=== PATIENT | male | born 1970 | race Caucasian/White ===

== ENCOUNTER → 2018-04-02 14:16 | Outpatient (CLI) | payer OTHER, SELFPAY | PROVIDERS: PCP Physician Assistant Medical; Visit Provider Physician Assistant Medical | DX: R07.9 Chest pain, unspecified (principal) | CPT/HCPCS: 93016; 93017; 93018 ==

== ENCOUNTER 2020-05-04 23:26 | Emergency (ER) | payer OTHER, SELFPAY ==
[2020-05-04 23:35] VITALS: BP 180/108; PULSE 92; RESP 16; TEMP 36.6; O2SAT 96; BMI 33.3
--- NOTE | 2020-05-04 23:38 | DI.RAD.S_ITS ---
PROCEDURE: XR ANKLE RT MIN 3V INDICATIONS: twisted ankle, pain and swelling TECHNIQUE: 3 views of the ankle were acquired. COMPARISON: None. FINDINGS: Bones: No fractures or dislocations. Ankle mortise is normally aligned. No suspicious bony lesions. Soft tissues: No tibiotalar joint effusion. Achilles tendon appears normal. Lateral soft tissue swelling is noted and ligamentous injury cannot be excluded. IMPRESSION: No fracture. No osseous lesion. If symptoms and/or clinical suspicion for pathology persists, further assessment with repeat radiographs (7-10 days) or advanced imaging (e.g. CT, MRI or bone scan) may be helpful. Dictated by: Alice Sifuentes MD, PhD on 05/05/2020 at 9:00 Approved by: Alice Sifuentes MD, PhD on 05/05/2020 at 9:05
[2020-05-05 01:30] VITALS: BP 134/84; PULSE 90; RESP 16; O2SAT 99
--- NOTE | 2020-05-05 01:35 | ED_ITS ---
HPI - Extremity Injury (Lower) General Chief Complaint: Extremity Injury, Lower Stated Complaint: Right ankle injury, swollen Time Seen by Provider: 05/05/20 01:27 Source: patient and family Mode of arrival: Wheelchair Limitations: no limitations History of Present Illness HPI Narrative: Patient brought in by . He was carrying some objects at home and twisted his ankle on some steps. Denies any other injuries. No prior surgeries or broken bones on the ankle. Review of Systems Review of Systems Narrative: GENERAL: Denies chills, fatigue, malaise, fever, sweats. HEENT: Denies sinus pain, ear pain, sore throat, difficulty swallowing, dizziness. RESPIRATORY: Denies dyspnea, cough, wheezing, hemoptysis, sputum. CARDIOVASCULAR: Denies chest pain, palpitations, orthopnea, edema, GASTROINTESTINAL: Denies nausea, vomiting, abdominal pain, diarrhea, constipation, melena. : Denies dysuria, frequency, incontinence, hematuria, urinary retention. MUSCULOSKELETAL: denies weakness, complains of ankle pain. SKIN: Denies rash, skin lesions, or other NEUROLOGIC: Denies weakness, headache, numbness, change in speech, confusion, seizures, incoordination. PSYCHIATRIC: No concerning psychosocial issues. ROS Unobtainable: All systems reviewed & are unremarkable except as noted in HPI and below Patient History Social History Smoking Status: Never smoker Smoking Status: Never smoker alcohol intake frequency: a few times a month Substance Use Type: does not use Exam Narrative Exam Narrative: GENERAL: patient appears stated age. Well-nourished, well- developed patient, in no distress, not toxic HEAD: Atraumatic. Normocephalic. EXTREMITIES: Examination right lower extremity nontender knee and tibia. There is anterior lateral edema of the right ankle. Limited flexion extension due to pain. Light touch intact to foot and toes with strong pedal pulse, skin is warm soft pink. Unable bear weight this time due to pain. NEURO: AOx3. SKIN: No rash or erythema of visible areas PSYCH: Not anxious, is cooperative Initial Vital Signs Initial Vital Signs: Vital Signs Temperature 97.8 F 05/04/20 23:35 Pulse Rate 92 H 05/04/20 23:35 Respiratory Rate 16 05/04/20 23:35 Blood Pressure 180/108 H 05/04/20 23:35 Pulse Oximetry 96 05/04/20 23:35 Course Orders Ordered: ED Orders 05/04/20 23:38 XR ankle RT min 3V Stat Discontinued Medications Hydrocodone Bitart/Acetaminophen ([place] 5/325) 2 tab PO NOW ONE Stop: 05/05/20 01:35 Last Admin: 05/05/20 01:51 Dose: 2 tab Documented by: BRIJESH Hydrocodone Bitart/Acetaminophen (Vicodin 5/325 Prepack) 1 bottle MISC SEEINSTR ONE Stop: 05/05/20 01:35 Last Admin: 05/05/20 01:51 Dose: 1 bottle Documented by: BRIJESH Ondansetron HCl (Zofran Odt) 4 mg SL NOW ONE Stop: 05/05/20 01:35 Last Admin: 05/05/20 01:51 Dose: 4 mg Documented by: BRIJESH Reevaluation(s) Reevaluation #1: Pain is controlled. Tolerating Brennan wrap and crutches Time: 01:49 Vital Signs Vital signs: Vital Signs - 8 hr 05/04/20 23:35 05/05/20 01:30 Temperature 97.8 F Pulse Rate 92 H 90 Respiratory Rate 16 16 Blood Pressure 180/108 H 134/84 Pulse Oximetry 96 99 MDM - Extremity Injury (Lower) Imaging Data X-ray right ankle: My Impression: No acute osseous injury. There is soft tissue swelling MDM Narrative Medical decision making narrative: Appropriate for discharge home. No neural deficits. Discharge Plan Departure Patient Disposition: Home Clinical Impression: Ankle sprain and strain Discharge Date/Time: 05/05/20 02:00 Activity Restrictions/Additional Instructions: Use crutches and Brennan wrap for comfort and ambulation until seen by Orthopedic office. Call today to make appointment. No driving tonight. No driving or operating machine while on prescribed pain medication. May also supplement with ibuprofen for pain. Ice and elevate ankle 20 minutes at a time for pain and swelling. Return if worse or if any questions or concerns Referrals: Gabriel Huynh MD [Physician] - Debra Davila PA-C [Primary Care Provider] - Stand Alone Forms: Work Release Note
[2020-05-05] MEDS: HYDROCODONE/ACET 5/325 PREPACK 1 BOTTLE MISC (01:51)
[2020-05-05] MEDS: ONDANSETRON 4 MG ODT SL (01:51)
[2020-05-05] MEDS: HYDROCODONE/ACET 5/325 TABLET 2 TAB PO (01:51)
== END 2020-05-05 02:00 | disposition home or self-care (01) ==
PROVIDERS: Emergency Provider Emergency Medicine; PCP Physician Assistant Medical
DX: S93.401A Sprain of unspecified ligament of right ankle, initial encounter (principal); S96.911A Strain of unspecified muscle and tendon at ankle and foot level, right foot, initial encounter; X58.XXXA Exposure to other specified factors, initial encounter
CPT/HCPCS: 73610; 99283